=== PATIENT | female | born 1995 | race Caucasian/White ===

== ENCOUNTER 2022-02-23 19:29 | Emergency (ER) | payer SELFPAY ==
[2022-02-23 20:34] LABS: Urine Blood 3+ (Negative); Urine Glucose Negative (Negative); Urine Protein Trace (Negative); Urine Specific Gravity 1.025 (1.005-1.030); Urine pH 5.5 (5.0-7.0)
[2022-02-23 20:48] LABS: Urine Specific Gravity/Preg 1.025 (1.005-1.030)
[2022-02-23 20:53] LABS: Albumin 3.4 g/dL (3.4-5.0); Bilirubin Total 0.4 mg/dL (0.2-1.0); Potassium 3.7 mmol/L (3.5-5.1); Protein, Total 7.4 g/dL (6.4-8.2)
[2022-02-23] MEDS ORDERED: Ringers Lactate 1,000 ML IV ONE (21:02)
[2022-02-23 21:45] LABS: Absolute Lymphocytes (CBC) 2.2 K/uL (0.7-4.9); Hematocrit 41.1 % (36.0-45.0); Lymphocytes % 17.2 % (15.3-44.8); MPV 9.5 fL (7.6-11.3); RBC Red Blood Cell Count 4.63 M/uL (3.86-4.86)
[2022-02-23 22:01] LABS: Urine Amorphous Sediment 1+ /HPF (NONE SEEN); Urine Bacteria 20-50 /HPF (<20)
[2022-02-23] MEDS ORDERED: PIPERACIL/TAZO 3.375 GM VIAL IV ONE (23:38)
[2022-02-23] MEDS ORDERED: NA CHLORIDE 0.9% 100 ML ONE ×2 (23:38→23:55)
--- NOTE | 2022-02-23 23:41 | ER ---
Nurse's Notes [facility] Name: Zakiya Huang Age: 26 yrs Sex: Female : 1995 Arrival Date: 02/23/2022 Time: 19:33 Bed 19 Private MD: Diagnosis: Cecitis;Lower abdominal pain, unspecified Presentation: 02/23 20:03 Chief complaint: Patient states: RLQ pain X 2 days. Denies N/V/D. Coronavirus screen: ld1 At this time, the client does not indicate any symptoms associated with coronavirus-19. Ebola Screen: No symptoms or risks identified at this time. Initial Sepsis Screen: Does the patient meet any 2 criteria? No. Patient's initial sepsis screen is negative. Does the patient have a suspected source of infection? No. Patient's initial sepsis screen is negative. Risk Assessment: Do you want to hurt yourself or someone else? Patient reports no desire to harm self or others. Onset of symptoms was February 23, 2022. 20:03 Method Of Arrival: Ambulatory ld1 20:03 Acuity: NESTOR 3 ld1 Triage Assessment: 20:04 General: Appears in no apparent distress. comfortable, Behavior is calm, cooperative, ld1 appropriate for age. Pain: Complains of pain in right lower quadrant Pain does not radiate. Pain currently is 8 out of 10 on a pain scale. EENT: No signs and/or symptoms were reported regarding the EENT system. Neuro: Level of Consciousness is awake, alert, obeys commands, Oriented to person, place, time, situation. Cardiovascular: Capillary refill < 3 seconds Patient's skin is warm and dry. Respiratory: Airway is patent Respiratory effort is even, unlabored, Respiratory pattern is regular, symmetrical. GI: Abdomen is flat, non-distended, Abd is soft Abdomen is tender to palpation in right lower quadrant. 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 - Social history:: Smoking status: Patient reports the use of cigarette tobacco products, smokes one pack cigarettes per day. Patient/guardian denies using alcohol. Screenin:03 Abuse screen: Denies threats or abuse. Denies injuries from another. Nutritional [facility] screening: No deficits noted. Tuberculosis screening: No symptoms or risk factors identified. Fall Risk None identified. Assessment: 20:42 Reassessment: No changes from previously documented assessment. I recv'd the pt from [facility] Triage at 2033. She is accompanied by her SO. She reports abd pain since yesterday. She has a SL to Rt AC. She is pleasant and calm. 21:03 GI: Bowel sounds present X 4 quads. [facility] 21:07 Reassessment: CT called, as the pt drank the contrast about an hour ago. [facility] 21:52 Reassessment: Pt to CT at this time. [facility] Vital Signs: 20:03 BP 138 / 82; Pulse 135; Resp 18; Temp 98.3(TE); Pulse Ox 100% on R/A; Weight 61.23 kg; ld1 Height 5 ft. 4 in. (162.56 cm); Pain 8/10; 21:02 BP 116 / 80; Pulse 59; Resp 16; Temp 98.2; Pulse Ox 100% on R/A; Pain 2/10; [facility] 02/24 00:15 BP 121 / 78; Pulse 62; Resp 16; Temp 98.2; Pulse Ox 100% on R/A; [facility] 02/23 20:03 Body Mass Index 23.17 (61.23 kg, 162.56 cm) ld1 ED Course: 02/23 19:33 Patient arrived in ED. kz 19:42 Troy Mcbride PA is PHCP. jr8 19:42 Richardson Sanchez MD is Attending Physician. jr8 20:04 Triage completed. ld1 20:04 Arm band placed on right wrist. ld1 20:38 Inserted saline lock: 22 gauge in right antecubital area, using aseptic technique. ds4 Blood collected. 20:42 Jayla Gilmore, GARY is Primary Nurse. [facility] 20:55 Urine Microscopic Only Sent. [facility] 21:03 Pulse ox on. NIBP on. Warm blanket given. [facility] 21:03 No provider procedures requiring assistance completed. [facility] 21:04 Patient has correct armband on for positive identification. Bed in low position. Adult [facility] w/ patient. 22:17 Abdomen In Process Unspecified. EDMS 23:26 Urine Culture Sent. [facility] 23:41 Zia Cornejo MD is Referral Physician. jr8 02/24 00:32 intact, bleeding controlled, No redness/swelling at site. Pressure dressing applied. [facility] Administered Medications: 02/23 21:02 Drug: Ringers - Lactated Ringers Solution 1000 ml Route: IV; Rate: bolus; Site: right [facility] antecubital; 23:30 Drug: Zosyn (piperacillin-tazobactam) 3.375 grams Route: IVPB; Infused Over: 60 mins; [facility] Site: right antecubital; 02/24 00:32 Follow up: IV Status: Completed infusion; IV Intake: 100ml [facility] Medication: 02/23 21:04 VIS not applicable for this client. [facility] Intake: 02/24 00:32 IV: 100ml; Total: 100ml. [facility] Outcome: 02/23 21:04 Condition: stable [facility] 23:41 Discharge ordered by . jr8 02/24 00:32 Discharged to home ambulatory, with family. [facility] Discharge instructions given to patient, Instructed on discharge instructions, follow up and referral plans. medication usage, Demonstrated understanding of instructions, follow-up care, medications, Prescriptions given X 4. 00:33 Patient left the ED. [facility] Signatures: Dispatcher [employer] EDMS Troy Mcbride PA PA jr8 Mack Li ds4 Kitty Mendoza RN RN ld1 Jayla Gilmore RN RN Kacy Ramirez
--- NOTE | 2022-02-23 23:42 | EDPHYS ---
Physician Documentation [facility] Name: Zakiya Huang Age: 26 yrs Sex: Female : 1995 Arrival Date: 02/23/2022 Time: 19:33 Bed 19 Private MD: ED Physician Richardson Sanchez HPI: 02/23 19:54 This 26 yrs old Female presents to ER via Unassigned with complaints of Abdominal Pain jr8 - Lower right. 19:54 The patient presents with abdominal pain right lower quadrant. Onset: The jr8 symptoms/episode began/occurred acutely, yesterday. The symptoms do not radiate. Associated signs and symptoms: Pertinent positives: diarrhea, nausea, Pertinent negatives: fever. The symptoms are described as crampy. Modifying factors: The symptoms are alleviated by nothing, the symptoms are aggravated by nothing. Severity of pain: At its worst the pain was moderate in the emergency department the pain is unchanged. The patient has not experienced similar symptoms in the past. The patient has not recently seen a physician. 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 - Social history:: Smoking status: Patient reports the use of cigarette tobacco products, smokes one pack cigarettes per day. Patient/guardian denies using alcohol. ROS: 19:54 Eyes: Negative for injury, pain, redness, and discharge, ENT: Negative for injury, jr8 pain, and discharge, Neck: Negative for injury, pain, and swelling, Cardiovascular: Negative for chest pain, palpitations, and edema, Respiratory: Negative for shortness of breath, cough, wheezing, and pleuritic chest pain, Back: Negative for injury and pain, MS/Extremity: Negative for injury and deformity, Skin: Negative for injury, rash, and discoloration, Neuro: Negative for headache, weakness, numbness, tingling, and seizure. 19:54 Abdomen/GI: Positive for abdominal pain, nausea, abdominal cramps. Exam: 19:54 Eyes: Pupils equal round and reactive to light, extra-ocular motions intact. Lids and jr8 lashes normal. Conjunctiva and sclera are non-icteric and not injected. Cornea within normal limits. Periorbital areas with no swelling, redness, or edema. ENT: Nares patent. No nasal discharge, no septal abnormalities noted. Tympanic membranes are normal and external auditory canals are clear. Oropharynx with no redness, swelling, or masses, exudates, or evidence of obstruction, uvula midline. Mucous membranes moist. Neck: Trachea midline, no thyromegaly or masses palpated, and no cervical lymphadenopathy. Supple, full range of motion without nuchal rigidity, or vertebral point tenderness. No Meningismus. Cardiovascular: Regular rate and rhythm with a normal S1 and S2. No gallops, murmurs, or rubs. Normal PMI, no JVD. No pulse deficits. Respiratory: Lungs have equal breath sounds bilaterally, clear to auscultation and percussion. No rales, rhonchi or wheezes noted. No increased work of breathing, no retractions or nasal flaring. Back: No spinal tenderness. No costovertebral tenderness. Full range of motion. Skin: Warm, dry with normal turgor. Normal color with no rashes, no lesions, and no evidence of cellulitis. MS/ Extremity: Pulses equal, no cyanosis. Neurovascular intact. Full, normal range of motion. Neuro: Awake and alert, GCS 15, oriented to person, place, time, and situation. Cranial nerves II-XII grossly intact. Motor strength 5/5 in all extremities. Sensory grossly intact. Cerebellar exam normal. Normal gait. 19:54 Abdomen/GI: Inspection: abdomen appears normal, Bowel sounds: active, all quadrants, Palpation: soft, in all quadrants, moderate abdominal tenderness, in the right lower quadrant, mass, is not appreciated, rebound tenderness, is not appreciated, voluntary guarding, is not appreciated, involuntary guarding, is not appreciated, no appreciated organomegaly, Indicators: McBurney's point is not tender, Kumar's sign is negative, Rovsing's sign is negative, Liver: tenderness, is not appreciated. Vital Signs: 20:03 BP 138 / 82; Pulse 135; Resp 18; Temp 98.3(TE); Pulse Ox 100% on R/A; Weight 61.23 kg; ld1 Height 5 ft. 4 in. (162.56 cm); Pain 8/10; 21:02 BP 116 / 80; Pulse 59; Resp 16; Temp 98.2; Pulse Ox 100% on R/A; Pain 2/10; [facility] 02/24 00:15 BP 121 / 78; Pulse 62; Resp 16; Temp 98.2; Pulse Ox 100% on R/A; [facility] 02/23 20:03 Body Mass Index 23.17 (61.23 kg, 162.56 cm) ld1 MDM: 02/23 19:52 Patient medically screened. [facility] 23:39 Data reviewed: vital signs, nurses notes, lab test result(s), radiologic studies, CT [facility] scan. Data interpreted: Pulse oximetry: on room air is 100 %. Interpretation: normal. Counseling: I had a detailed discussion with the patient and/or guardian regarding: the historical points, exam findings, and any diagnostic results supporting the discharge/admit diagnosis, lab results, radiology results, the need for outpatient follow up, a family practitioner, a stem roller, to return to the emergency department if symptoms worsen or persist or if there are any questions or concerns that arise at home. ED course: Discussed with patient that she has cecitis. Recommended IV Abx and admission over night to see how she does as she still is having pain. Patient is concerned about financial constraints and wants to try outpatient therapy at this time. I believe this is ok as she is afebrile and hemodynamically stable and without focal guarding or peritonitic findings. Close return precautions given which patient is good with. . 02/23 20:01 Order name: CBC with Diff; Complete Time: 21:59 [facility] 02/23 20:01 Order name: CMP; Complete Time: 20:54 [facility] 02/23 20:34 Order name: Urine Dipstick-Ancillary; Complete Time: 20:48 [facility] 02/23 20:38 Order name: Urine --Ancillary (enter results); Complete Time: 20:48 [facility] 02/23 20:39 Order name: Urine Microscopic Only; Complete Time: 22:27 [facility] 02/23 22:04 Order name: Urine Culture [facility] 02/23 20:01 Order name: IV Saline Lock; Complete Time: 20:37 [facility] 02/23 20:01 Order name: Labs collected and sent; Complete Time: 20:37 02/23 20:01 Order name: Urine Dipstick-Ancillary (obtain specimen); Complete Time: 20:37 02/23 20:01 Order name: Urine Test (obtain specimen); Complete Time: 20:37 02/23 21:46 Order name: Abdomen EDMS Administered Medications: 21:02 Drug: Ringers - Lactated Ringers Solution 1000 ml Route: IV; Rate: bolus; Site: right [facility] antecubital; 23:30 Drug: Zosyn (piperacillin-tazobactam) 3.375 grams Route: IVPB; Infused Over: 60 mins; [facility] Site: right antecubital; 02/24 00:32 Follow up: IV Status: Completed infusion; IV Intake: 100ml [facility] Disposition: 07:07 Co-signature as Attending Physician, Richardson Sanchez MD. [facility] Disposition Summary: 02/23/22 23:41 Discharge Ordered Location: Home jr8 Problem: new jr8 Symptoms: have improved jr8 Condition: Stable jr8 Diagnosis - Cecitis jr8 - Lower abdominal pain, unspecified jr8 Followup: jr8 - With: Zia Cornejo MD - When: 10 - 14 days - Reason: Recheck today's complaints, Continuance of care, Re-evaluation by your physician Discharge Instructions: - Discharge Summary Sheet jr8 - Abdominal Pain, Adult jr8 Forms: - Medication Reconciliation Form jr8 - Thank You Letter jr8 - Antibiotic Education jr8 - Prescription Opioid Use jr8 Prescriptions: - Cipro 500 mg Oral Tablet - take 1 tablet by ORAL route every 12 hours for 10 days; 20 tablet; Refills: 0, jr8 Product Selection Permitted - Flagyl 500 mg Oral Tablet - take 1 tablet by ORAL route every 6 hours for 10 days; 40 tablet; Refills: 0, jr8 Product Selection Permitted - Zofran 4 mg Oral Tablet - take 1 tablet by ORAL route every 12 hours As needed; 20 tablet; Refills: 0, jr8 Product Selection Permitted - dicyclomine 20 mg Oral Tablet - take 1 tablet by ORAL route 4 times per day As needed; 40 tablet; Refills: 0, jr8 Product Selection Permitted Signatures: [facility] PA [facility] Richardson Sanchez MD MD [facility] Kitty Mendoza RN RN ld1 Jayla Gilmore RN RN [facility] Corrections: (The following items were deleted from the chart) 02/23 21:46 20:02 Abdomen W/ Con+CT.RAD.SABASZ ordered. EDMS EDMS
[2022-02-24 00:55] VITALS: O2SAT 100
[2022-02-24 00:57] VITALS: TEMP 98.2
[2022-02-24 00:59] VITALS: BP 121/78
--- NOTE | 2022-02-24 13:32 | RAD REPORT ---
EXAM DESCRIPTION: CT - Abdomen Pelvis W Contrast - 02/24/2022 6:54 am CLINICAL HISTORY: 26 years, Female, Abdominal pain, acute, nonlocalized COMPARISON: None TECHNIQUE: Contrast-enhanced images of the abdomen and pelvis were performed utilizing 5 mm slice th ickness at 5 mm interval reconstruction from the lung bases to the ischial tuberosities after the adm inistration IV contrast. In addition multiplanar reformats in the coronal and sagittal plane were obtained and reviewed. This exam was performed according to our departmental dose-optimization protocol, which includes auto mated exposure control, adjustment of the mA and/or kV according to patient size and/or use of iterat gerhard reconstruction technique. FINDINGS: The lung bases demonstrate to be clear. The liver, gallbladder, pancreas, spleen and adrenal glands demonstrate to be unremarkable, no focal lesions are noted. The kidneys demonstrate normal uptake of contrast media. No evidence for nephrolithiasis and/or hydro nephrosis. The opacified stomach and small bowel bowel demonstrate to be within normal limits. There is no kelsie dence for bowel dilatation/or free air. The appendix is normal. There is abnormal mucosal thickenin g involving the cecum, ileocecal valve proximal aspect of the ascending colon, best demonstrated on a xial image [id number]/97 suggesting the possibility of infection and/or inflammation-cecitis The urinary bladder demonstrate to be unremarkable. The uterus is unremarkable. There are no adnexa l masses. The aorta demonstrate to be normal. There is no retroperitoneal lymphadenopathy. There is no evidence for ascites or and/or significant abnormal fluid collections. The rest of the soft tis romi and bony structures are within normal limits. IMPRESSION: Abnormal mucosal thickening involving the cecum, ileocecal valve suggesting the possibil ity of cecitis. Electronically signed by: Robinson Isaacs MD 02/23/2022 10:56 PM CDT Due to temporary technical issues with the PACS/Fluency reporting system, reports are being signed by the in house radiologist without review as a courtesy to ensure prompt reporting. The interpreting r adiologist is fully responsible for the content of the report.
== END 2022-02-24 00:33 | disposition home or self-care (01) ==
LOC: ER 19:29
DX: K52.9 Noninfective gastroenteritis and colitis, unspecified (principal); F17.210 Nicotine dependence, cigarettes, uncomplicated
CPT/HCPCS: 36415; 74177; 80053; 81003; 81015; 81025; 85025; 87086; 87088; 96365; 96375; 99284; J2543; J7120; Q9967